=== PATIENT | male | born 1980 | race Two or more races ===

== ENCOUNTER 2021-12-22 08:25 | Emergency (ER) | payer MEDICAID, OTHER ==
[~2021-12-22] VITALS: Ht 172.7 cm; Wt 109.8 kg
[2021-12-22] MEDS: TETRACAINE HCL 0.5% OPTH(EYE) SOLN 4ML RIGHTEYE ONE (09:23)
[2021-12-22] MEDS: FLUORESCEIN SOD OPTH TEST STRIP RIGHTEYE ONE (09:23)
[2021-12-22 09:28] VITALS: BP 160/90
[2021-12-22] MEDS ORDERED: POLYSOL15 OP (10:17)
[2021-12-22] MEDS ORDERED: ALBUAER3 IN (10:32)
== END 2021-12-22 11:17 | disposition home or self-care (01) ==
LOC: ER 08:25 → EDBD 08:25 → ER 11:05
DX: S05.01XA Injury of conjunctiva and corneal abrasion without foreign body, right eye, initial encounter (principal); F17.210 Nicotine dependence, cigarettes, uncomplicated; X58.XXXA Exposure to other specified factors, initial encounter; Y93.89 Activity, other specified; Y92.89 Other specified places as the place of occurrence of the external cause; Y99.8 Other external cause status